=== PATIENT | female | born 1960 | race Caucasian/White ===

== ENCOUNTER 2019-06-11 13:04 | Emergency (ER) | payer OTHER ==
[2019-06-11] MEDS ORDERED: Ketorolac Tromethamine 30 MG/ML VIAL ONE (14:21)
--- NOTE | 2019-06-11 14:26 | RAD ---
AP view of the pelvis INDICATION: Fall getting out of the shower with pelvic pain COMPARISON: None. FINDINGS: Bones: No acute fracture or subluxation is evident. Bone mineralization appears within normal limits. Hips: There is mild left hip osteoarthrosis. The right hip appears radiographically normal. SI joints and symphysis pubis: Normal appearing. Intrapelvic contents: Within normal limits. IMPRESSION: No acute osseous abnormality.
--- NOTE | 2019-06-11 14:26 | RAD ---
XR Hip Rt 2-3 View HISTORY: Fall, right pain FINDINGS: No fracture or dislocation is identified.
== END 2019-06-11 14:52 ==
LOC: MADERS 13:04
DX: S70.01XA Contusion of right hip, initial encounter (principal); I10 Essential (primary) hypertension; Z79.899 Other long term (current) drug therapy; W18.30XA Fall on same level, unspecified, initial encounter
CPT/HCPCS: 72170; 96372; J1885

== ENCOUNTER 2019-09-12 02:17 | Emergency (ER) | payer MEDICAID, OTHER ==
[2019-09-12 02:44] LABS: Bilirubin Negative (Negative); Blood, Urine Negative (Negative); Clarity Clear (Clear); Glucose, Urine (Dipstick) Negative (Negative); Leukocyte Trace (Negative); Nitrite Negative (Negative); Protein, Urine (Dipstick) Negative (Neg-Trace); Urobilinogen 0.2 mg/dL (Less than 2)
[2019-09-12 02:49] LABS: #Basophils 0.1 thou/uL (0.0-0.2); #Eosinphils 0.2 thou/uL (0.0-0.7); #Lymphocytes 2.9 thou/uL (1.20-3.40); #Monocytes 0.9 thou/uL (0.11-0.59); %Basophils 0.8 % (0.0-1.0); %Eosinophils 2.7 % (0.0-10.0); %Lymphocytes 31.7 % (21.0-51.0); %Monocytes 10.2 % (0.0-10.0); %Neutrophils 54.6 % (42.0-75.0); INR-International Normal Ratio 0.8; Mean Corpuscular HGB CONC 31.5 g/dL (32.0-36.0); Mean Corpuscular Hemoglobin 31.3 pg (27.0-31.0); Mean Corpuscular Volume 99.2 fL (78.0-98.0); Mean Platelet Volume 6.2 fL (7.4-10.4); PTT 25.9 sec (22.9-36.1); Platelet Count 347 thou/uL (130-400); Prothrombin Time 11.5 sec (12.0-14.7); RBC Distribution Width 12.3 % (11.5-14.5); Red Blood Cell (RBC) Count 4.16 mill/uL (4.20-5.40); White Blood Cell (WBC) Count 9.2 thou/uL (4.8-10.8)
[2019-09-12 02:50] LABS: Bacteria/HPF 2+ HPF (None Seen); RBC/HPF 0-3 HPF (0-3); Squamous Epithelial 0-3 HPF (0-3)
[2019-09-12 02:51] LABS: Amphetamine Not Detected (NotDetected); Barbiturates Screen Not Detected (NotDetected); Benzodiazepine Screen Not Detected (NotDetected); Cocaine Metabolite Screen Not Detected (NotDetected); Medtox Control Line Valid? VALID (VALID); Methadone Not Detected (NotDetected); Methamphetamine Not Detected (NotDetected); Opiate Screen Not Detected (NotDetected); Oxycodone Screen Not Detected (NotDetected); Phencyclidine (PCP) Not Detected (NotDetected); THC/Cannabinoid Screen Not Detected (NotDetected); Tricyclic Screen Not Detected (NotDetected)
[2019-09-12 03:00] LABS: ALT (SGPT) 16 U/L (8-55); AST (SGOT) 15 U/L (5-34); Alkaline Phosphatase 118 U/L (40-110); Anion Gap 14 mmol/L (10-20); BUN (Urea Nitrogen) 26 mg/dL (9.8-20.1); Bilirubin, Total 0.2 mg/dL (0.2-1.2); CK (CPK) 76 U/L (29-168); Calc. Creatinine Clearance 0 mL/min (70-130); Calcium 9.1 mg/dL (7.8-10.44); Carbon Dioxide 27 mmol/L (22-29); Chloride 105 mmol/L (98-107); Estimated GFR-MDRD 64; Globulin 3.3 g/dL (2.4-3.5); Glucose 101 mg/dL (70-105); Protein, Total 7.3 g/dL (6.0-8.3); Sodium 142 mmol/L (136-145)
[2019-09-12] MEDS ORDERED: cefTRIAXone\\ROCEPHIN 1 GM VIAL ONE (03:43)
[2019-09-12] MEDS ORDERED: Sodium Chloride 0.9% 100 ML ONE (03:45)
--- NOTE | 2019-09-12 08:14 | CT ---
PRELIMINARY REPORT/[facility]/EMERGENCY AFTER HOURS PROCEDURE EXAM: CT Head, without Contrast DATE/ TIME: 09/12/2019, 2:42 AM INDICATION: Altered mental status; weakness TECHNIQUE: Axial CT imaging was performed through the head without intravenous administration of con trast. Coronal and sagittal reconstructions were generated and reviewed. Exam was performed using o ne or more of the following dose reduction techniques: automated exposure control, adjustment of the mA and/or kV according to patient size, or use of iterative reconstruction technique. COMPARISON: None. FINDINGS: There is no intracranial hemorrhage, mass or mass effect. Hypoattenuation in the subinsul ar regions bilaterally is noted suggesting lacunar infarcts. In the left insular there is a well-def ined 6-7 mm CSS-fluid collection which may represent a benign neuroepithelial cyst. There is no CT e vidence of an acute territorial infarct. Orbital structures are unremarkable. Imaging begins at the maxillary alveolar ridge level. Paranasal sinuses and mastoid air cells are clear. IMPRESSION: 1. No intracranial hemorrhage. 2. Bilateral subinsular regions of decreased attenuation suggesting chronic lacunar infarcts. If fu rther imaging is desired, a cranial MRI with diffusion imaging is suggested. ELECTRONICALLY SIGNED BY: Griffin Wakefield DO Sep 12, 2019 3:20:59 AM CDT This report is intended for review by the ordering physician only, in accordance of law. If you recei ve this report in error, please call [facility] at [phone]. FINAL REPORT EMERGENT AFTER HOURS CT BRAIN WITHOUT CONTRAST: FINDINGS/IMPRESSION: I agree with the findings and impression given in the preliminary report per [facility] physici an. No evidence of acute intracranial abnormality. POS: GREGG
== END 2019-09-12 04:09 ==
LOC: MADERS 02:17
DX: R41.82 Altered mental status, unspecified (principal); N39.0 Urinary tract infection, site not specified; I10 Essential (primary) hypertension; Z79.899 Other long term (current) drug therapy
CPT/HCPCS: 51701; 70450; 80053; 80306; 81003; 81015; 82550; 84484; 85025; 85610; 85730; 87077; 87086; 87186; 93005; 94760; 96365; J0696; J3490

== ENCOUNTER 2019-10-23 22:06 | Emergency (ER) | payer OTHER ==
--- NOTE | 2019-10-23 23:00 | CT ---
Exam: Head CT without contrast HISTORY: Fall. Pain. Occipital injury. COMPARISON: 09/12/2019 FINDINGS: Hemorrhage: No intraparenchymal hemorrhage or extra-axial hematoma. Brain parenchyma: Cortical herrera-white matter differentiation is preserved. No mass effect or midline shift. Basilar cisterns are patent.Remote cavitary lacunar infarct inferior to the left basal ganglia Ventricular system: Ventricles and sulci are patent and symmetric. Calvarium: Intact. Right scalp: Minimal left parietal scalp hematoma. Sinuses and mastoid air cells: Adequate aeration. IMPRESSION: No intracranial posttraumatic sequelae.
--- NOTE | 2019-10-23 23:02 | CT ---
Exam: CT cervical spine without contrast HISTORY: Trauma. Pain. COMPARISON: None FINDINGS: No craniocervical dissociation. Appropriate alignment of the lateral masses of C1 and C2. Intact odon toid process Appropriate alignment of the facets. Straightening of normal cervical lordosis is presumed to be due to patient position, muscle spasm or cervical collar. Soft tissue neck structures: No mass, lymphadenopathy or hematoma. No prevertebral soft tissue swelli ng. Upper mediastinum and lung apices: Unremarkable Central spinal canal: Varying degrees of central canal stenosis and neural foraminal narrowing on the basis of degenerative change. Technique limits evaluation. Vertebral bodies: Cervical spine vertebral body height is maintained. No fracture. IMPRESSION: 1. No fracture 2. Multilevel degenerative changes of the cervical spine 3. Straightening of cervical lordosis which is presumed to be due to patient position, muscle spasm o r cervical collar. MRI if there is concern for ligamentous injury
--- NOTE | 2019-10-23 23:21 | RAD ---
Exam: 3 views lumbar spine HISTORY: Fall. Pain. FINDINGS: 5 lumbar type vertebra. Visualized sacrum and bony pelvis are intact 2.2 mm of anterolisthesis of L4 upon L5. Moderate loss of disc space height at L5-S1. Remaining disc space heights are preserved No lumbar spine fracture IMPRESSION: No fracture.
== END 2019-10-23 23:35 ==
LOC: MADERS 22:06
DX: S09.90XA Unspecified injury of head, initial encounter (principal); S13.4XXA Sprain of ligaments of cervical spine, initial encounter; S33.5XXA Sprain of ligaments of lumbar spine, initial encounter; M19.90 Unspecified osteoarthritis, unspecified site; I10 Essential (primary) hypertension; R73.03 Prediabetes; G62.9 Polyneuropathy, unspecified; F17.290 Nicotine dependence, other tobacco product, uncomplicated; Z79.899 Other long term (current) drug therapy; W17.89XA Other fall from one level to another, initial encounter
CPT/HCPCS: 70450; 72100; 72125